=== PATIENT | male | born 1975 | race Caucasian/White ===

== ENCOUNTER 2018-08-12 08:03 | Emergency (ER) | payer BC | END 2018-08-12 08:45 | disposition home or self-care (01) | LOC: NAV ERS 08:03 | DX: J02.0 Streptococcal pharyngitis (principal); F41.9 Anxiety disorder, unspecified; Z87.891 Personal history of nicotine dependence | CPT/HCPCS: 87081; 87430; 99283 ==

== ENCOUNTER 2019-03-21 14:45 | Emergency (ER) | payer BC ==
[2019-03-21] MEDS ORDERED: Adacel (T-DAP) 0.5 ML SYRINGE ONE (15:09)
== END 2019-03-21 15:34 | disposition home or self-care (01) ==
LOC: NAV ERS 14:45
DX: S01.351A Open bite of right ear, initial encounter (principal); F41.9 Anxiety disorder, unspecified; Z87.891 Personal history of nicotine dependence; W54.0XXA Bitten by dog, initial encounter
CPT/HCPCS: 90471; 90715

== ENCOUNTER 2024-09-07 18:23 | Emergency (ER) | payer BC | END 2024-09-07 19:27 | disposition home or self-care (01) | LOC: NAV ERS 18:23 | DX: M54.50 Low back pain, unspecified (principal); Z87.891 Personal history of nicotine dependence | CPT/HCPCS: 99283 ==